=== PATIENT | male | born 1980 | race Caucasian/White ===

== ENCOUNTER 2018-07-24 18:36 | Emergency (ER) | payer OTHER, SELFPAY ==
--- NOTE | 2018-07-24 19:59 | ER ---
Nurse's Notes [facility] Name: Angel Kendall Age: 37 yrs Sex: Male : 1980 Arrival Date: 07/24/2018 Time: 18:42 Bed 15 Private MD: None, None Diagnosis: Low back pain;Strain of muscle, fascia and tendon of lower back Presentation: 07/24 19:10 Presenting complaint: Patient states: C/O pain in low back area, reports hx of back ph pain but states that it has been worse in the past week. Transition of care: patient was not received from another setting of care. Onset of symptoms was July 24, 2018. Risk Assessment: Do you want to hurt yourself or someone else? Patient reports no desire to harm self or others. Initial Sepsis Screen: Does the patient meet any 2 criteria? No. Patient's initial sepsis screen is negative. Does the patient have a suspected source of infection? No. Patient's initial sepsis screen is negative. Care prior to arrival: Medication(s) given: Tylenol, 650 mg, at 1645. 19:10 Method Of Arrival: Ambulatory ph 19:10 Acuity: ROLANDO 4 ph Triage Assessment: 19:24 General: Appears in no apparent distress. comfortable, Behavior is calm, cooperative, cc3 appropriate for age. Pain: Complains of pain in back. EENT: No signs and/or symptoms were reported regarding the EENT system. Neuro: Level of Consciousness is awake, alert, obeys commands, Oriented to person, place, time, situation, Appropriate for age. Cardiovascular: Denies chest pain. Respiratory: Airway is patent Respiratory effort is even, unlabored, Respiratory pattern is regular, symmetrical. GI: Abdomen is round non-distended. : No signs and/or symptoms were reported regarding the genitourinary system. Derm: No signs and/or symptoms reported regarding the dermatologic system. Musculoskeletal: Circulation, motion, and sensation intact. Range of motion: intact in all extremities. Historical: - Allergies: 19:12 No Known Allergies; ph - Home Meds: 19:12 None [Active]; ph - PMHx: 19:12 None; ph - PSHx: 19:12 None; ph - Immunization history:: Adult Immunizations not up to date. - Social history:: Smoking status: Patient uses tobacco products, smokes one pack cigarettes per day. - Ebola Screening: : No symptoms or risks identified at this time. Screenin:24 Abuse screen: Denies threats or abuse. Denies injuries from another. Nutritional cc3 screening: No deficits noted. Tuberculosis screening: No symptoms or risk factors identified. Fall Risk Ambulatory Aid- None/Bed Rest/Nurse Assist (0 pts). Gait- Normal/Bed Rest/Wheelchair (0 pts) Mental Status- Oriented to own ability (0 pts). Assessment: 19:24 General: see triage assessment. cc3 20:10 Reassessment: Patient appears in no apparent distress at this time. Patient and/or cc3 family updated on plan of care and expected duration. Pain level reassessed. Patient is alert, oriented x 3, equal unlabored respirations, skin warm/dry/pink. JASMIN Camarena discharged the patient home with prescription given. No IV cannula in situ. Patient left ER vitally stable and ambulatory. Vital Signs: 19:12 BP 149 / 92; Pulse 110; Resp 18; Temp 98.4; Pulse Ox 96% on R/A; Weight 117.93 kg; ph Height 5 ft. 11 in. (180.34 cm); Pain 8/10; 20:00 BP 143 / 89; Pulse 106; Resp 19 S; Pulse Ox 96% on R/A; cc3 19:12 Body Mass Index 36.26 (117.93 kg, 180.34 cm) ph ED Course: 18:42 Patient arrived in ED. sb2 18:42 None, None is Private Physician. sb2 19:12 Triage completed. ph 19:12 Arm band placed on Patient placed in an exam room, on a stretcher. ph 19:13 Stella Bautista is Primary Nurse. cc3 19:17 Zion Camarena PA is PHCP. jr8 19:17 Godwin Lou MD is Attending Physician. jr8 19:26 Patient has correct armband on for positive identification. Bed in low position. Call cc3 light in reach. Side rails up X 1. Pulse ox on. NIBP on. 20:10 No provider procedures requiring assistance completed. Patient did not have IV access cc3 during this emergency room visit. Administered Medications: No medications were administered Outcome: 19:59 Discharge ordered by . jr8 20:10 Discharged to home ambulatory. cc3 20:10 Condition: stable 20:10 Discharge instructions given to patient, Instructed on discharge instructions, follow up and referral plans. medication usage, Demonstrated understanding of instructions, follow-up care, medications, Prescriptions given X 3. 20:16 Patient left the ED. cc3 Signatures: Zion Camarena PA PA jr8 Hall, Patricia, RN RN Anai Garza 2 Stella Bautista cc3
--- NOTE | 2018-07-24 20:00 | EDPHYS ---
Physician Documentation [facility] Name: Angel Kendall Age: 37 yrs Sex: Male : 1980 Arrival Date: 07/24/2018 Time: 18:42 Bed 15 Private MD: None, None ED Physician Godwin Lou HPI: 07/24 20:04 This 37 yrs old Male presents to ER via Ambulatory with complaints of Back jr8 Pain. 20:04 The patient presents with pain that is chronic. The symptoms are located in the low jr8 back. Onset: The symptoms/episode began/occurred gradually, 1 week(s) ago, and became worse and became persistent. The pain does not radiate. Associated signs and symptoms: The patient has no apparent associated signs or symptoms. Modifying factors: The patient symptoms are alleviated by rest, the patient symptoms are aggravated by bending, lifting, movement. Severity of symptoms: At their worst the symptoms were moderate, in the emergency department the symptoms are unchanged. The patient has experienced similar episodes in the past, a few times. The patient has not recently seen a physician. History of Chronic back pain. Has occasional flare up's. Stated that he had been bending a lot for work and started to have a flare up. Has not had any relief with OTC medicine. Denies numbness, tingling, weakness, abdominal pain, bowel or bladder dysfunction . Historical: - Allergies: 19:12 No Known Allergies; ph - Home Meds: 19:12 None [Active]; ph - PMHx: 19:12 None; ph - PSHx: 19:12 None; ph - Immunization history:: Adult Immunizations not up to date. - Social history:: Smoking status: Patient uses tobacco products, smokes one pack cigarettes per day. - Ebola Screening: : No symptoms or risks identified at this time. ROS: 20:04 Eyes: Negative for injury, pain, redness, and discharge, ENT: Negative for injury, jr8 pain, and discharge, Neck: Negative for injury, pain, and swelling, Cardiovascular: Negative for chest pain, palpitations, and edema, Respiratory: Negative for shortness of breath, cough, wheezing, and pleuritic chest pain, Abdomen/GI: Negative for abdominal pain, nausea, vomiting, diarrhea, and constipation, MS/Extremity: Negative for injury and deformity, Skin: Negative for injury, rash, and discoloration, Neuro: Negative for headache, weakness, numbness, tingling, and seizure. 20:04 Back: Positive for pain at rest, pain with movement, of the low back area, Negative for radiated pain. Exam: 20:04 Eyes: Pupils equal round and reactive to light, extra-ocular motions intact. Lids and jr8 lashes normal. Conjunctiva and sclera are non-icteric and not injected. Cornea within normal limits. Periorbital areas with no swelling, redness, or edema. ENT: Nares patent. No nasal discharge, no septal abnormalities noted. Tympanic membranes are normal and external auditory canals are clear. Oropharynx with no redness, swelling, or masses, exudates, or evidence of obstruction, uvula midline. Mucous membranes moist. Neck: Trachea midline, no thyromegaly or masses palpated, and no cervical lymphadenopathy. Supple, full range of motion without nuchal rigidity, or vertebral point tenderness. No Meningismus. Cardiovascular: Regular rate and rhythm with a normal S1 and S2. No gallops, murmurs, or rubs. Normal PMI, no JVD. No pulse deficits. Respiratory: Lungs have equal breath sounds bilaterally, clear to auscultation and percussion. No rales, rhonchi or wheezes noted. No increased work of breathing, no retractions or nasal flaring. Abdomen/GI: Soft, non-tender, with normal bowel sounds. No distension or tympany. No guarding or rebound. No evidence of tenderness throughout. Skin: Warm, dry with normal turgor. Normal color with no rashes, no lesions, and no evidence of cellulitis. MS/ Extremity: Pulses equal, no cyanosis. Neurovascular intact. Full, normal range of motion. Neuro: Awake and alert, GCS 15, oriented to person, place, time, and situation. Cranial nerves II-XII grossly intact. Motor strength 5/5 in all extremities. Sensory grossly intact. Cerebellar exam normal. Normal gait. 20:04 Back: pain, that is moderate, of the low back area, ROM is painful, normal spinal alignment noted, CVA tenderness, is absent, muscle spasm, is appreciated in the left low back and right low back. Vital Signs: 19:12 BP 149 / 92; Pulse 110; Resp 18; Temp 98.4; Pulse Ox 96% on R/A; Weight 117.93 kg; ph Height 5 ft. 11 in. (180.34 cm); Pain 8/10; 20:00 BP 143 / 89; Pulse 106; Resp 19 S; Pulse Ox 96% on R/A; cc3 19:12 Body Mass Index 36.26 (117.93 kg, 180.34 cm) ph MDM: 19:58 Patient medically screened. jr8 19:58 Data reviewed: vital signs, nurses notes, and as a result, I will discharge patient. jr8 Data interpreted: Pulse oximetry: on room air is 96 %. Interpretation: normal. Counseling: I had a detailed discussion with the patient and/or guardian regarding: the historical points, exam findings, and any diagnostic results supporting the discharge/admit diagnosis, the need for outpatient follow up, a family practitioner, to return to the emergency department if symptoms worsen or persist or if there are any questions or concerns that arise at home. Administered Medications: No medications were administered Disposition: 07/25 06:43 Co-signature as Attending Physician, Godwin Lou MD I agree with the assessment and kdr plan of care. Disposition: 07/24/18 19:59 Discharged to Home. Impression: Low back pain, Strain of muscle, fascia and tendon of lower back. - Condition is Stable. - Discharge Instructions: Back Pain, Adult, Chronic Back Pain, Musculoskeletal Pain, Back Exercises, [id number], Heat Therapy. - Prescriptions for Ibuprofen 800 mg Oral Tablet - take 1 tablet by ORAL route every 12 hours As needed take with food; 20 tablet. Cyclobenzaprine 10 mg Oral Tablet - take 1 tablet by ORAL route every 8 hours As needed; 30 tablet. Medrol (John) 4 mg Oral Tablets, Dose Pack - take 1 tablet by ORAL route as directed - follow package instructions; 1 packet. - Work release form, Medication Reconciliation Form, Thank You Letter, Antibiotic Education, Prescription Opioid Use form. - Follow up: Private Physician; When: 5 - 6 days; Reason: Recheck today's complaints, Continuance of care, Re-evaluation by your physician. - Problem is new. - Symptoms have improved. Signatures: Godwin Lou MD MD [facility] Zion Camarena PA PA jr8 Adwoa Paredes RN RN ph Stella Bautista cc3 Corrections: (The following items were deleted from the chart) 07/24 20:16 19:59 07/24/2018 19:59 Discharged to Home. Impression: Low back pain; Strain of muscle, cc3 fascia and tendon of lower back. Condition is Stable. Forms are Medication Reconciliation Form, Thank You Letter, Antibiotic Education, Prescription Opioid Use. Follow up: Private Physician; When: 5 - 6 days; Reason: Recheck today's complaints, Continuance of care, Re-evaluation by your physician. Problem is new. Symptoms have improved. jr8
== END 2018-07-24 20:16 | disposition home or self-care (01) ==
LOC: ER 18:36
DX: S39.012A Strain of muscle, fascia and tendon of lower back, initial encounter (principal); F17.210 Nicotine dependence, cigarettes, uncomplicated
CPT/HCPCS: 99283

== ENCOUNTER 2022-06-04 18:41 | Emergency (ER) | payer OTHER, SELFPAY ==
--- NOTE | 2022-06-04 19:15 | RAD REPORT ---
EXAM DESCRIPTION: RAD - Chest Single View - 06/04/2022 7:08 pm CLINICAL HISTORY: CHEST PAIN COMPARISON: CHEST PA AND LAT 2 VIEW dated 05/31/2009 FINDINGS: Lines: None. Lungs: No evidence of edema or pneumonia. Pleural: No significant pleural effusions or pneumothorax. Cardiac: The heart size is within normal limits. Mediastinum: Within normal limits. Bones: No acute fractures. Other: None IMPRESSION: No acute cardiopulmonary disease.
[2022-06-04 19:48] LABS: Absolute Lymphocytes (CBC) 2.3 K/uL (0.7-4.9); Hematocrit 38.5 % (39.6-49.0); Lymphocytes % 29.2 % (15.3-44.8); MCV 88.1 fL (80-100); RBC Red Blood Cell Count 4.37 M/uL (4.33-5.43)
[2022-06-04 20:08] LABS: Potassium 3.8 mmol/L (3.5-5.1); Troponin High Sensitivity 10.2 pg/mL (<58.9)
--- NOTE | 2022-06-04 21:29 | RAD REPORT ---
EXAM DESCRIPTION: CTAngio Aorta For Dissection - 06/04/2022 8:56 pm CLINICAL HISTORY: chest pain radiating to left arm/neck/scapula COMPARISON: No comparisonsNo comparisons TECHNIQUE: CT of the chest, abdomen, and pelvis was performed with IV contrast. All CT scans are performed using dose optimization technique as appropriate and may include automated exposure control or mA/KV adjustment according to patient size. FINDINGS: Thorax: Chest Wall: No abnormal mass Lungs: No acute abnormality. Pleura: No effusions or pneumothorax. Soheila/Mediastinum: No lymphadenopathy. Small hiatal hernia Aorta/Pulmonary Arteries: Unremarkable Heart: Normal size. Abdomen/Pelvis: Liver: No acute abnormality or suspicious lesions. Biliary: No biliary ductal dilatation. Stomach: No significant focal abnormality. Duodenum: No significant focal abnormality. Pancreas: No significant abnormality. Spleen: No significant abnormality. Adrenal: No suspicious lesions. Kidney/ureter: No hydronephrosis. No renal calculi. Retroperitoneum: No retroperitoneal adenopathy. Vascular: No aneurysm. Bowel: No significant focal abnormality. Peritoneum: No ascites or free air. Bladder: Grossly unremarkable. Reproductive: No adnexal masses. Bones: No acute fracture. Other: n/a IMPRESSION: No aortic aneurysm, aortic dissection, or pulmonary embolus identified. No alternate acu te finding identified within the chest, abdomen, or pelvis.
--- NOTE | 2022-06-04 21:37 | ER ---
Nurse's Notes [facility] Name: Angel Kendall Age: 41 yrs Sex: Male : 1980 Arrival Date: 06/04/2022 Time: 18:44 Bed IW1 Private MD: Diagnosis: Chest pain, unspecified;Radiculopathy, cervical region Presentation: 06/04 18:45 Chief complaint: Patient states: Woke up today - chest pain radiates to left arm. ld1 Severe pain - took ibuprofen and acetaminophen this morning. Coronavirus screen: At this time, the client does not indicate any symptoms associated with coronavirus-19. Ebola Screen: No symptoms or risks identified at this time. Initial Sepsis Screen: Does the patient meet any 2 criteria? No. Patient's initial sepsis screen is negative. Does the patient have a suspected source of infection? No. Patient's initial sepsis screen is negative. Risk Assessment: Do you want to hurt yourself or someone else? Patient reports no desire to harm self or others. Onset of symptoms was June 04, 2022 at 18:46. 18:45 Method Of Arrival: Ambulatory ld1 18:45 Acuity: ROLANDO 3 ld1 Triage Assessment: 18:46 General: Appears in no apparent distress. uncomfortable, Behavior is calm, cooperative, ld1 appropriate for age. Pain: Complains of pain in left clavicle and anterior aspect of left upper chest Pain radiates to left arm Pain currently is 10 out of 10 on a pain scale. Quality of pain is described as sharp, shooting, throbbing. EENT: No signs and/or symptoms were reported regarding the EENT system. Neuro: Level of Consciousness is awake, alert, obeys commands, Oriented to person, place, time, situation. Cardiovascular: Capillary refill < 3 seconds Patient's skin is warm and dry. Rhythm is sinus rhythm. Respiratory: Airway is patent Respiratory effort is even, unlabored. GI: Abdomen is round non-distended. : No signs and/or symptoms were reported regarding the genitourinary system. Derm: No signs and/or symptoms reported regarding the dermatologic system. Musculoskeletal: No signs and/or symptoms reported regarding the musculoskeletal system. Historical: - Allergies: 18:46 No Known Allergies; ld1 - Home Meds: 18:46 None [Active]; ld1 - PMHx: 18:46 None; ld1 - PSHx: 18:46 None; ld1 - Immunization history:: Adult Immunizations up to date, Client reports receiving the 2nd dose of the Covid vaccine. - Social history:: Smoking status: Patient reports the use of cigarette tobacco products, smokes one-half pack cigarettes per day, Patient/guardian denies using alcohol. - Family history:: not pertinent. - Hospitalizations: : No recent hospitalization is reported. Screenin:56 Abuse screen: Denies threats or abuse. Denies injuries from another. Nutritional ld1 screening: No deficits noted. Tuberculosis screening: No symptoms or risk factors identified. Fall Risk No fall in past 12 months (0 pts). Assessment: 21:56 Reassessment: Patient appears in no apparent distress at this time. No changes from ld1 previously documented assessment. Patient and/or family updated on plan of care and expected duration. Pain level reassessed. Patient is alert, oriented x 3, equal unlabored respirations, skin warm/dry/pink. See triage assessment. Vital Signs: 18:45 Weight 124.74 kg; Height 5 ft. 11 in. (180.34 cm); Pain 10/10; ld1 18:48 BP 168 / 93; Pulse 82; Resp 18; Temp 98.6(O); Pulse Ox 98% on R/A; ld1 21:56 BP 156 / 89; Pulse 79; Resp 18; Pulse Ox 100% on R/A; Pain 3/10; ld1 18:45 Body Mass Index 38.35 (124.74 kg, 180.34 cm) ld1 ED Course: 18:44 Patient arrived in ED. rg4 18:46 Triage completed. ld1 18:46 Arm band placed on right wrist. EKG completed in triage. Results shown to MD. ld1 19:10 XRAY Chest (1 view) In Process Unspecified. EDMS 19:12 Gregg Holder MD is Attending Physician. rn 19:31 Inserted saline lock: 20 gauge in right antecubital area, using aseptic technique. db Blood collected. 20:58 CT Aorta for Dissection In Process Unspecified. EDMS 21:56 Patient has correct armband on for positive identification. Call light in reach. Pulse ld1 ox on. NIBP on. Door closed. Noise minimized. 21:56 No provider procedures requiring assistance completed. IV discontinued, intact, ld1 bleeding controlled, No redness/swelling at site. Patient maintains SpO2 saturation greater than 95% on room air. Administered Medications: 21:55 Drug: Ketorolac 30 mg Route: IVP; Site: right antecubital; ld1 21:56 Drug: Decadron - Dexamethasone 10 mg Route: IVP; Site: right antecubital; ld1 Medication: 21:56 VIS not applicable for this client. ld1 Outcome: 21:37 Discharge ordered by . rn 21:56 Discharged to home ambulatory, with family. ld1 21:56 Condition: stable 21:56 Discharge instructions given to patient, family, Instructed on discharge instructions, follow up and referral plans. medication usage, Demonstrated understanding of instructions, follow-up care, medications, Prescriptions given X 3. 21:57 Patient left the ED. ld1 Signatures: Dispatcher [employer] EDMS Gregg Holder MD MD rn Garcia, Rubi rg4 Cande Lawson RN RN ld1 Minda Mccullough RN RN db
--- NOTE | 2022-06-04 21:37 | EDPHYS ---
Physician Documentation [facility] Name: Angel Kendall Age: 41 yrs Sex: Male : 1980 Arrival Date: 06/04/2022 Time: 18:44 Bed IW1 Private MD: ED Physician Gregg Holder HPI: 06/04 19:29 This 41 yrs old Black Male presents to ER via Ambulatory with complaints of Chest Pain, rn Shoulder Pain. 19:29 The patient or guardian reports chest pain that is located primarily in the anterior rn chest wall, left. The pain radiates to the left shoulder, the left scapula. Associated signs and symptoms: Pertinent positives: None. Pertinent negatives: abdominal pain, cough, diaphoresis, dizziness, headache, near syncope, palpitations, shortness of breath, syncope, vomiting. The chest pain is described as aching. Duration: The patient or guardian reports multiple episodes, that are intermittent. Modifying factors: The symptoms are alleviated by NSAIDS, remaining still, the symptoms are aggravated by movement, palpation of area. Severity of pain: At its worst the pain was moderate in the emergency department the pain has improved. The patient has not experienced similar symptoms in the past. The patient has not recently seen a physician. Pt reports left chest pain, radiates to left shoulder and scapula. No fever. No trauma. No cough. Reports improved with OTC meds. Present for last couple of days. No famhx of cardiac problems at his age. NO abd pain. No vomiting. . Historical: - Allergies: 18:46 No Known Allergies; ld1 - Home Meds: 18:46 None [Active]; ld1 - PMHx: 18:46 None; ld1 - PSHx: 18:46 None; ld1 - Immunization history:: Adult Immunizations up to date, Client reports receiving the 2nd dose of the Covid vaccine. - Social history:: Smoking status: Patient reports the use of cigarette tobacco products, smokes one-half pack cigarettes per day, Patient/guardian denies using alcohol. - Family history:: not pertinent. - Hospitalizations: : No recent hospitalization is reported. ROS: 19:29 Constitutional: Negative for fever, chills, and weight loss, Eyes: Negative for injury, rn pain, redness, and discharge, Neck: Negative for injury, pain, and swelling, Cardiovascular: + chest pain Respiratory: Negative for shortness of breath, cough, wheezing, and pleuritic chest pain, Abdomen/GI: Negative for abdominal pain, nausea, vomiting, diarrhea, and constipation, Back: Negative for injury and pain, MS/Extremity: Negative for injury and deformity, Skin: Negative for injury, rash, and discoloration, Neuro: Negative for headache, weakness, numbness, tingling, and seizure. Exam: 19:29 Constitutional: This is a well developed, well nourished patient who is awake, alert, rn and in no acute distress. Head/Face: Normocephalic, atraumatic. Neck: Trachea midline, no masses palpated, and no cervical lymphadenopathy. Supple, full range of motion without nuchal rigidity, or vertebral point tenderness. No Meningismus. Chest/axilla: Normal chest wall appearance and motion. + reproducible left chest wall pain Cardiovascular: Regular rate and rhythm. No pulse deficits. Respiratory: No increased work of breathing, no retractions or nasal flaring. Abdomen/GI: Soft, non-tender Skin: Warm, dry MS/ Extremity: Pulses equal, no cyanosis Neuro: Awake and alert, GCS 15 19:42 ECG was reviewed by the Attending Physician. rn Vital Signs: 18:45 Weight 124.74 kg; Height 5 ft. 11 in. (180.34 cm); Pain 10/10; ld1 18:48 BP 168 / 93; Pulse 82; Resp 18; Temp 98.6(O); Pulse Ox 98% on R/A; ld1 21:56 BP 156 / 89; Pulse 79; Resp 18; Pulse Ox 100% on R/A; Pain 3/10; ld1 18:45 Body Mass Index 38.35 (124.74 kg, 180.34 cm) ld1 MDM: 19:12 Patient medically screened. rn 21:36 Differential diagnosis: acute myocardial infarction, acute pericarditis, anxiety, rn coronary artery disease chest wall pain, costochondritis, esophagitis, gastroesophageal reflux disease (GERD), pleurisy, pneumothorax, thoracic aortic disection. HEART Score: History: Slightly Suspicious (0), ECG: Normal (0), Age: < or = 45 years (0), Risk Factors: No Risk Factors Known (0), Troponin: < or = 1 x Normal Limit (0), Total Score = 0. Data reviewed: vital signs, nurses notes, lab test result(s), EKG, radiologic studies, CT scan, and as a result, I will discharge patient. Counseling: I had a detailed discussion with the patient and/or guardian regarding: the historical points, exam findings, and any diagnostic results supporting the discharge/admit diagnosis, lab results, radiology results, the need for outpatient follow up, to return to the emergency department if symptoms worsen or persist or if there are any questions or concerns that arise at home. Special discussion: I discussed with the patient/guardian in detail that at this point there is no indication for admission to the hospital. It is understood, however, that if the symptoms persist or worsen the patient needs to return immediately for re-evaluation. Based on the history and exam findings, there is no indication for further emergent testing or inpatient evaluation. I discussed with the patient/guardian the need to see the primary care provider for further evaluation of the symptoms. 06/04 18:52 Order name: Basic Metabolic Panel; Complete Time: 20:35 ld1 06/04 18:52 Order name: CBC with Diff; Complete Time: 20:35 ld1 06/04 18:52 Order name: Troponin HS; Complete Time: 20:35 ld1 06/04 18:52 Order name: XRAY Chest (1 view); Complete Time: 19:18 ld1 06/04 19:21 Order name: CT Aorta for Dissection; Complete Time: 21:36 rn 06/04 18:52 Order name: EKG; Complete Time: 18:53 ld1 06/04 18:52 Order name: EKG - Nurse/Tech; Complete Time: 18:52 ld1 06/04 18:52 Order name: IV Saline Lock; Complete Time: 19:31 ld1 06/04 18:52 Order name: Labs collected and sent; Complete Time: 19:31 ld1 06/04 18:52 Order name: O2 Per Protocol; Complete Time: 20:42 ld1 06/04 18:52 Order name: O2 Sat Monitoring; Complete Time: 20:42 ld1 EC:42 Rate is 78 beats/min. Rhythm is regular. QRS [place] is Normal. TX interval is normal. QRS rn interval is normal. QT interval is normal. No Q waves. T waves are Normal. No ST changes noted. Clinical impression: NSR w/ Non-specific ST/T Changes. Interpreted by me. Reviewed by me. Administered Medications: 21:55 Drug: Ketorolac 30 mg Route: IVP; Site: right antecubital; ld1 21:56 Drug: Decadron - Dexamethasone 10 mg Route: IVP; Site: right antecubital; ld1 Disposition Summary: 06/04/22 21:37 Discharge Ordered Location: Home rn Problem: new rn Symptoms: have improved rn Condition: Stable rn Diagnosis - Chest pain, unspecified rn - Radiculopathy, cervical region rn Followup: rn - With: Private Physician - When: As needed - Reason: Recheck today's complaints, Re-evaluation by your physician Discharge Instructions: - Discharge Summary Sheet rn - Cervical Radiculopathy rn - Nonspecific Chest Pain, Adult rn - Pain Without a Known Cause rn - Steps to Quit Smoking rn Forms: - Medication Reconciliation Form rn - Thank You Letter 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
[2022-06-04] MEDS ORDERED: dexAMETHasone 10 MG/ML VIAL ONE (21:52)
[2022-06-04] MEDS ORDERED: KETOROLAC 30 MG/ML INJ ONE (21:52)
[2022-06-04 22:36] VITALS: TEMP 98.6
[2022-06-04 22:37] VITALS: BP 156/89; O2SAT 100
--- NOTE | 2022-06-05 14:36 | EKG ---
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
== END 2022-06-04 21:57 | disposition home or self-care (01) ==
LOC: ER 18:41
DX: M54.12 Radiculopathy, cervical region (principal); F17.210 Nicotine dependence, cigarettes, uncomplicated
CPT/HCPCS: 36415; 71045; 71275; 74175; 80048; 84484; 85025; 93005; 96374; 96375; 99285; J1100; Q9967